=== PATIENT | female | born 1955 | race African-American/Black ===

== ENCOUNTER → 2016-12-30 | Outpatient (CLI) | payer OTHER ==
[~2016-12-30] MED LIST: ACCOLATE20 MG PO; ACETAMINOPHEN PO; ADVAIR 500-501 EACH IH; ADVAIR 5001 DISK W/D PO; ADVAIR DISKU1 500/50 INH; AEROBID INHALER7 GM INH; ALBUTEROL17 GM INH; AVALIDE 150-12.1 TAB PO; CENTRUM PO; CLARINEX5 MG PO; COMBIVENT U/D3 ML INH; COMBIVENT14.7 GM INH; DYRENIUM50 MG PO; FAMVIR500 MG PO; FLONASE16 GM; FLOVENT HFA12 GM INH; JANUVIA PO; LEVAQUIN PO; MAXZIDE 75/50 T1 TA1 PO; MAXZIDE 75/50 T1 TAB PO; MIRALAX17 GM PO; NORVASC PO; PREDNISONE PO; PRILOSEC PO; PROTONIX PO; SINGULAIR PO; TRIAMTERENE-HC1 EACH PO; TYLOX 5/500 CAP1 CAP PO; VICODIN 5/1 TAB 5/50 PO; WALGREEN'S PHARMACY
--- NOTE | ~2016-12-30 | MR84 ---
[facility] A Service of [facility] & [facility] RADIOLOGY TEXT RESULTS PATIENT: RONNY AUGUSTE LOCATION: [facility] : 57 UNIT #: [id number] AGE: [address]: Aurora Aquino SEX: F ORDER DR: [id number] [facility] [address] [place], [place] [address] [id number] O MR#: [id number] #: [id number] NAME: RONNY AUGUSTE : 1955 SEX: F STUDY DATE/TIME: 12/30/2016 8:58 UNIT: [facility] ROOM: STUDY DESCRIPTION: MR Hip Wo Contrast Rt Attending Physician: Aurora Aquino A.P.R.N. Referring Physician: Aurora Aquino A.P.R.N. Ordering Physician: Aurora Aquino A.P.R.N. Primary Care Physician: Jovanny Periera M.D. MRI CENTER REPORT This report is preliminary unless electronic signature is present. EXAM MRI pelvis and hips-metal reduction technique, 12/30/2016. HISTORY Order states right hip pain. History sheet states bilateral right greater than left hip pain for 3 months. Two weeks ago was walking up some steps and felt acute severe pain in both hips. No known injury. 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 Bilateral hip surgeries. Right hip surgery 2012 and 2015. [facility] operative report, Sal Campos M.D., 08/29/2015 (endoscopic release of right hip, iliopsoas right hip, iliopsoas right tendon). Right hip radiograph 01/04/2016, MRIs of the pelvis and hips dated 04/06/2012, 10/23/2012, and 08/22/2014. FINDINGS There are bilateral hip arthroplasties. Metal reduction technique was maximized. The patient is status post bilateral hip arthroplasties. There is no sizable effusion, periarticular fluid collection, or periprosthetic fracture. The gluteal tendon insertions at the greater trochanters are unremarkable. There is no pelvic muscle atrophy. The released right iliopsoas tendon is not obviously retracted. There is no iliopsoas bursal fluid. There is [id number] inflammation in the deep subcutaneous space superficial to the anterior proximal gluteus medius muscle. There is associated mild muscle edema. The edema appears to be secondary to a longitudinal approximate 3 cm (craniocaudal) tear of the gluteus medius [facility] A Service of [facility] RADIOLOGY TEXT RESULTS PATIENT: RONNY AUGUSTE LOCATION: [facility] : 57 UNIT #: [id number] AGE: [address]: Aurora Aquino SEX: F ORDER DR: aponeurosis (fascia over the gluteus medius muscle) with partial detachment at the anterior superior iliac crest. This is not a gluteus medius tendon abnormality at the greater trochanter. The left opposite anterior gluteus medius aponeurosis demonstrates mild edema at the iliac crest origin but no tear or detachment. Incidental lipoma in the right iliopsoas muscle is unchanged. Right greater than left partial atrophy of the gluteus minimus muscles bilaterally is nonspecific and not associated with a tendon tear or detachment. There is lower lumbar degenerative disc disease, most prominent at L5-S1. This is associate with a diffuse disc protrusion posteriorly. There is a prominent fibroid uterus without gross change since 08/22/2014. No internal pelvic pathology is otherwise demonstrated. IMPRESSION 1. Unremarkable bilateral total hip arthroplasties. 2. 3 cm in length tiny vertical tear with associated partial detachment of the fascia overlying the gluteus medius muscle proximally near the anterior iliac crest attachment site. There is associated mild subcutaneous and gluteus medius muscle edema. 3. Mild inflammation associated with the superficial gluteus medius aponeurosis/fascia on the left without tear or detachment. 4. Gluteal tendon insertions at the greater trochanters are unremarkable. 5. Stable fibroid uterus and intramuscular right iliopsoas lipoma. 6. Surgical release of the right iliopsoas tendon by prior operative report detailed above without tendon retraction identified. There is no associated bursitis. 7. L5-S1 degenerative disc disease and diffuse disc protrusion. Dictated by... Danna Castaneda M.D. THIS IS AN ELECTRONICALLY VERIFIED REPORT Danna Castaneda M.D. at 12/31/2016 12:10 PM [facility] TD: 12/31/2016 11:38 JOB #: [id number] MRI CENTER REPORT [facility]. [facility] A Service of [facility] & [facility] RADIOLOGY TEXT RESULTS PATIENT: RONNY AUGUSTE [facility] 57 UNIT #: [id number] AGE: [address]: Aurora Aquino SEX: F ORDER DR: Page 1 of 1 COPY
== END | disposition home or self-care (01) ==
LOC: CMRI 08:00
DX: M25.551 Pain in right hip (principal); S76.011A Strain of muscle, fascia and tendon of right hip, initial encounter; D25.9 Leiomyoma of uterus, unspecified; M51.37 Other intervertebral disc degeneration, lumbosacral region; M51.27 Other intervertebral disc displacement, lumbosacral region; Z96.641 Presence of right artificial hip joint; Z96.642 Presence of left artificial hip joint
CPT/HCPCS: 73721